=== PATIENT | female | born 1965 | race Caucasian/White ===

== ENCOUNTER 2018-08-12 18:03 | Emergency (ER) | payer OTHER ==
--- NOTE | 2018-08-12 18:41 | C.PDOC ---
History Of Present Illness 52 F w/ PMHx: CRPS (chronic regional pain syndrome), gastric ulcers, asthma, presents to ED for chest pain that started yesterday. Pt states she was walking when she developed pressure like chest pain around the sternal region. The pain started and has been intermittent since then and has SOB with it. Patient denies recent travel, but notes calf tenderness on R leg that she had a negative U/S by her primary doctor 3 months prior. Patient denies fevers, nausea, vomiting, abdominal pain, dysuria, hematuria. <Pro Chaparro - Last Filed: 08/12/18 18:53> <Pro Chaparro - Last Filed: 08/12/18 18:53> <Katelynn Dumont - Last Filed: 08/12/18 19:58> Time Seen by Provider: 08/12/18 18:35 Chief Complaint (Nursing): Chest Pain Past Medical History Vital Signs: Last Vital Signs Temp 98.7 F 08/12/18 18:26 Pulse 83 08/12/18 18:26 Resp 16 08/12/18 18:26 BP 111/78 08/12/18 18:26 Pulse Ox 97 08/12/18 18:26 - Medical History PMH: Anemia, Arthritis, Asthma, Back Problems, Bronchitis, COPD, Depression, Kidney Stones, Osteoporosis, Pneumonia Surgical History: Cholecystectomy Family History: States: Unknown Family Hx - Social History Hx Tobacco Use: No Hx Alcohol Use: No Hx Substance Use: No - Immunization History Hx Tetanus Toxoid Vaccination: No Hx Influenza Vaccination: No Hx Pneumococcal Vaccination: No <Pro Chaparro - Last Filed: 08/12/18 18:53> Vital Signs: Last Vital Signs Temp 98.7 F 08/12/18 18:26 Pulse 83 08/12/18 18:26 Resp 16 08/12/18 18:26 BP 111/78 08/12/18 18:26 Pulse Ox 97 08/12/18 18:54 <Katelynn Dumont - Last Filed: 08/12/18 19:58> Review Of Systems Constitutional: Positive for: Chills. Negative for: Fever, Sweats Cardiovascular: Positive for: Chest Pain. Negative for: Palpitations, Light Headedness Respiratory: Positive for: Shortness of Breath, SOB with Excertion. Negative for: Cough, Hemoptysis Gastrointestinal: Negative for: Nausea, Vomiting, Abdominal Pain, Diarrhea, Constipation Genitourinary: Negative for: Dysuria, Frequency, Hematuria Neurological: Negative for: Altered Mental Status Psych: Negative for: Anxiety <Pro Chaparro - Last Filed: 08/12/18 18:53> Physical Exam - Physical Exam Appears: Non-toxic Nose: Normal Oral Mucosa: Moist Tongue: Normal Appearing Chest: Symmetrical, Tenderness Respiratory: Normal Breath Sounds, No Decreased Breath Sounds, No Rales, No Rhonchi, No Wheezing Gastrointestinal/Abdominal: Normal Exam, Bowel Sounds, Soft Back: No CVA Tenderness Extremity: Calf Tenderness (R calf tenderness, larger than L, chronic) Neurological/Psych: Oriented x3, Normal Speech, Normal Cognition, Normal Motor <Pro Chaparro - Last Filed: 08/12/18 18:53> ED Course And Treatment O2 Sat by Pulse Oximetry: 97 <Pro Chaparro - Last Filed: 08/12/18 18:53> - Laboratory Results Result Diagrams: 08/12/18 18:50 08/12/18 18:50 Lab Interpretation: No Acute Changes ECG: Interpreted By Ut ECG Rhythm: Sinus Rhythm ECG Interpretation: Normal (Patient states that she was having pain at the time of the EKG) - Radiology CXR: Interpreted by Ut CXR Interpretation: Yes: No Acute Disease Reevaluation Time: 19:57 Reassessment Condition: Improved (No chest pain at this time.) <NicolajessicaKatelynn Alana - Last Filed: 08/12/18 19:58> Medical Decision Making Medical Decision Making: Cxray, EKG, CBC, CMP, Lipase, D-dimer, Troponins <Pro Chaparro - Last Filed: 08/12/18 18:53> Disposition <Pro Chaparro - Last Filed: 08/12/18 18:53> Counseled Patient/Family Regarding: Studies Performed, Diagnosis, Need For Followup - Disposition Disposition Time: 19:58 <TimKatelynnjannette Briscoe - Last Filed: 08/12/18 19:58> - Disposition Referrals: Jin Merchant MD [Staff Provider] - Disposition: HOME/ ROUTINE Condition: IMPROVED Instructions: Chest Pain Forms: [facility] (Gabonese) - Clinical Impression Clinical Impression: Chest pain
[2018-08-12 19:08] LABS: BASO # 0.1 K/uL (0.0-0.2); BASO % 1.2 % (0.0-2.0); EOS # 0.1 K/uL (0.0-0.7); EOS % 1.5 % (0.0-4.0); HEMOGLOBIN 12.9 g/dL (11.0-16.0); LYMPH # 2.2 K/uL (1.0-4.3); LYMPH % 44.7 % (20.0-40.0); MEAN CELL VOLUME 84.2 fL (81.0-99.0); MEAN CORPUSCULAR HEMOGLOBIN 28.5 pg (27.0-31.0); MEAN CORPUSCULAR HGB CONC 33.8 g/dL (33.0-37.0); MEAN PLATELET VOLUME 8.1 fL (7.2-11.7); MONO # 0.3 K/uL (0.0-0.8); MONO % 5.7 % (0.0-10.0); NEUT # 2.3 K/uL (1.8-7.0); NEUT % 46.9 % (50.0-75.0); NRBC % 0.3 % (0.0-2.0); RBC 4.54 Mil/uL (3.80-5.20); RED CELL DISTRIBUTION WIDTH 13.3 % (11.5-14.5); WHITE BLOOD COUNT 4.8 K/uL (4.8-10.8)
[2018-08-12 19:18] LABS: ALB/GLOB RATIO 1.3 (1.0-2.1); ALBUMIN 4.4 g/dL (3.5-5.0); ALT/SGPT 23 U/L (9-52); AST/SGOT 18 U/L (14-36); BLOOD UREA NITROGEN 9 mg/dL (7-17); CALCIUM 9.4 mg/dl (8.6-10.4); GFR NON-AFRICAN AMERICAN > 60; LIPASE 57 U/L (23-300)
[2018-08-12 19:52] LABS: SQUAMOUS EPITHIAL 2 /hpf (0-5); URINE BACTERIA RARE (<OCC); URINE BILIRUBIN NEGATIVE (NEGATIVE); URINE CLARITY Clear (Clear); URINE COLOR Straw (YELLOW); URINE GLUCOSE (UA) NORMAL (Normal); URINE LEUKOCYTE ESTERASE TRACE Leu/uL (Negative); URINE PROTEIN NEGATIVE (NEGATIVE); URINE UROBILINOGEN NORMAL mg/dL (0.2-1.0)
[2018-08-12 20:00] LABS: URINE BLOOD TRACE (NEGATIVE)
[2018-08-12 20:04] VITALS: BP 116/79; PULSE 78; RESP 18; TEMP 98; O2SAT 98
--- NOTE | 2018-08-13 07:58 | RAD ---
Date of service: 08/12/2018 HISTORY: chest pain COMPARISON: 08/04/2016 FINDINGS: LUNGS: Mild venous congestion. PLEURA: No significant pleural effusion identified, no pneumothorax apparent. CARDIOVASCULAR: No aortic atherosclerotic calcification present. Normal cardiac size. OSSEOUS STRUCTURES: No significant abnormalities. VISUALIZED UPPER ABDOMEN: Normal. OTHER FINDINGS: None. IMPRESSION: Mild venous congestion.
--- NOTE | 2018-08-13 12:46 | CARD ---
APPROVED REPORT Date of service: 08/12/2018 EKG Measurement Heart [id number] <Conclusion> Normal sinus rhythm Normal ECG
== END 2018-08-12 20:04 | disposition home or self-care (01) ==
LOC: C.ER 18:03
DX: R07.9 Chest pain, unspecified (principal); J44.9 Chronic obstructive pulmonary disease, unspecified; Z87.01 Personal history of pneumonia (recurrent); Z72.0 Tobacco use